=== PATIENT | male | born 1930 | race Caucasian/White ===

== ENCOUNTER → 2017-01-19 | Day surgery (SDC) | payer MEDICARE, BC ==
[~2017-01-19] MED LIST: BUPIVACAINE HCL PF 0.5% 30 ML VIAL ONE; LACTATED RINGER'S 1000 ML INJ 1,000 ML ONE; LIDOCAINE HCL 1% PF 30 ML VIAL ONE; PROPOFOL 100 MG/10 ML INJ IV ONE; ceFAZolin 2 GM PREMIX 50 ML ONE
--- NOTE | 2017-01-22 11:38 | MP ---
cc: CORI FELDER DPM DATE OF : 1930 DATE OF SURGERY: 01/19/2017 PREOPERATIVE DIAGNOSIS: Right second digit osteomyelitis POSTOPERATIVE DIAGNOSIS: Right second digit osteomyelitis OPERATION: Right second toe amputation at the metacarpal phalangeal joint with primary closure. SPECIMEN: Right second toe for pathology and deep wound culture for Gram stain, acid fast aerobes and anaerobes. ESTIMATED BLOOD LOSS: 20 cc. TOURNIQUET No tourniquet was needed. ANESTHESIA: Light sedation with 10 cc of 0.5% Marcaine plain and 1% lidocaine plain injected preoperatively. SURGEON: Santiago Felder DPM. INSURANCE ACCOUNT SPECIALIST: Staff. INDICATIONS FOR PROCEDURE: This patient is an 86 year-old male who sustained a right distal second toe ulcer which developed into osteomyelitis in between office visits. The patient is requiring surgical intervention at this time due to risk of sepsis and inability to remove infection from antibiotics. The patient understands the procedure performed today as well as the potential risks and complications involved. All questions were answered. The risks versus benefits discussed at length. DESCRIPTION OF PROCEDURE: The patient was brought to the operating room, placed on the operating room table in the supine position. After the patient was anesthetize, 10 cc of 0.5 Marcaine plain, 1% lidocaine plain was injected proximal to the metacarpal phalangeal joint of the right second toe. With the patient asleep and localized around the digit, fish mouth incision was made slightly distal to the metacarpal phalangeal joint. The toe was disarticulated. The area was copiously flushed and with all vital structures, vital bleeders cauterized, Vicryl was used to close the subcutaneous tissue, nylon was used to close the skin. Adaptic, 4x4, Kerlix and Stanford was used to wrap the foot. The patient handled anesthesia well. DESHAWN Jones/[facility] /10:04 AM /11:26 AM MTDTara
== END | disposition home or self-care (01) ==
LOC: ESDC 08:02
PROVIDERS: ATTEND Podiatrist Foot & Ankle Surgery
DX: M86.671 Other chronic osteomyelitis, right ankle and foot (principal)
CPT/HCPCS: 01480; 28820; 87015; 87070; 87102; 87116; 87205; 87206; 88305; 88311; J0690; J3010; J7120